=== PATIENT | female | born 1985 ===

== ENCOUNTER 2024-04-26 12:38 | Emergency (ER) | payer MEDICAID, SELFPAY ==
[2024-04-26 12:41] VITALS: BP 137/80
--- NOTE | 2024-04-26 14:10 | ED.GENMED ---
History of Present Illness
General
Chief Complaint: Musculo-Skeletal Complaint
Source: patient
Exam Limitations: none
Time Seen by Provider: 04/26/24 13:39
Nursing documentation reviewed up to this point in time: agreed with
History of Present Illness
History of Present Illness:
38 y/o F with no sig pmh here with thumb thatstarted months ago
she has felt it clicking and locking
and sometimes it is bent at the IPJ where it get stuck before she is able to traighten it, like this morning
she had lived here until a year ago and went to [place] and lost her insurance
she hasn't been taking her insulin because of losing her insurance
so she is asking for a refill
she does have welfare now but it doesn't kick in until the
Past History
Past History
ED Past Medical History: Asthma, IDDM and Other (Chronic back pain, Pancreatitis)
ED Past Surgical History: ( X 1)
Social History
Tobacco: Former smoker
Alcohol: Occasional
Drug: Marijuana
Personal:
Living: with family
Employment: Employed
Review of Systems
Review of Systems
Allergies reviewed?: Yes
All Other Systems: Not applicable
Phy Exam
Physical Exam
Physical Exam:
GENERAL: Alert , in no apparent distress, comfortable at rest
HEAD: NCAT
CV: cap refill intact
NEUROLOGICAL: Alert and oriented, no focal neuro deficits, , 5/5 strength, sensation intact,
SKIN: Warm and dry, normal skin
MUSCULOSKELETAL: right thumb normal inspection, full rom
some clicking but no obvious trigger finger sypmtoms currently
no thenar swelling
no skin chagnes
PSYCH: Normal and appropriate interaction.
Course
Orders/Labs/Results
Orders:
Orders
04/26/24 13:36
Thumb/Finger 2 View Rt [CR Finger(s)/thumb Min 2 Vw Rt] Urgent
Comment:
Reason For Exam: pain
Indicate Which Finger:: Thumb
Vital Signs
Initial and Last Documented VS:
Initial Vital Signs
Temp Pulse Resp BP Pulse Ox
98.5 F 108 16 137/80 98
04/26/24 12:41 04/26/24 12:41 04/26/24 12:41 04/26/24 12:41 04/26/24 12:41
Last Documented Vital Signs
Temp Pulse Resp BP Pulse Ox
98.5 F 108 16 137/80 98
04/26/24 12:41 04/26/24 12:41 04/26/24 12:41 04/26/24 12:41 04/26/24 12:41
MDM/Problems Addressed
Differential Diagnosis Includes:
trigger finger, med refill
MDM/Problems Addressed:
38 y/o F
type II dm of jaye meds
right thumb clicking and locking for months
today it seemed 'stuck' in the flexed position IPJ
it is extended now
sx sc/w trigger finger
xrays indep reviewedc by me and neg
splinted with a finger splint aluminum by me
refilled her meds for dm
*Critical Care Note
Total Time (30-74mins, 75-104mins- exclusive of procedures): Not Applicable
ED Attending Note
-
Portions of this chart may have been created with voice recognition software.� Occasional wrong word or��sound alike� substitutions may have occurred due to the inherent limitations of voice recognition software.
Discharge Plan
Departure
Patient Disposition: Home (Routine Discharge)
Date of Disposition: 04/26/24
Time of Disposition: 14:37
Patient with high blood pressure during this ER visit?: No
Discharge Problem:
Trigger finger of thumb
Instructions: Trigger Finger (DC)
Prescriptions:
New
insulin glargine [Lantus Solostar U-100 Insulin] 100 unit/mL (3 mL) insulin pen
10 unit SC QPM Qty: 15 0RF
Trulicity 3 mg/0.5 mL pen injector
3 mg SC QWEEK Qty: 2 0RF
No Action
insulin glargine [Lantus Solostar U-100 Insulin] 100 unit/mL (3 mL) Insulin Pen
0 unit SC HS
Patient Comments:
04/26/2024: Pt doesn't know dose, per Yovany fill on 02/25/23, pt was prescribed 60 units SC HS
Trulicity 3 mg/0.5 mL Pen Injector
3 mg SC QWEEK
Referrals:
Tiffanie Monroy I., DO [Active] - Follow up in 5-7 days
Activity Restrictions/Additional Instructions:
you need to follow up with orthopedics for further management of your trigger finger
you can wear the splint for now to help immobilize
you can take tylenol or ibuprofen for pain as needed
return for any concerns.
Interventions
Interventions:
*Risk Screen - Suicide Last Done: 04/26/24 13:40
*General Assessment Last Done: 04/26/24 13:40
*Neglect/Abuse Screening Last Done: 04/26/24 13:40
ED- Fall Risk Assessment Last Done: 04/26/24 14:46
*ED COVID-19 Vaccine History Last Done: 04/26/24 13:40
*Nursing Disposition Last Done: 04/26/24 14:46
ED-Musculoskeletal Assessment Last Done: 04/26/24 13:40
Discharge Date and Time
Discharge Date/Time: 04/26/24 14:47
Print Language: ROMANSH
== END 2024-04-26 14:47 | disposition home or self-care (01) ==
LOC: EMR 12:38
PROVIDERS: EMERGENCY PHYSICIAN Emergency Medicine
DX: M65.311 Trigger thumb, right thumb (principal); Z87.891 Personal history of nicotine dependence
CPT/HCPCS: 99283; 29130; 73140